=== PATIENT | male | born 1970 | race Caucasian/White ===

== ENCOUNTER 2018-12-16 22:02 | Emergency (ER) | payer MEDICAID ==
[~2018-12-16] VITALS: Ht 175.3 cm; Wt 102.7 kg
[2018-12-16 22:05] VITALS: BP 172/120
--- NOTE | 2018-12-16 22:16 | NUR ---
PT BP REPORTED TO DR. MCDERMOTT. DR. MCDERMOTT STILL OKAY WITH SEEING PT IN [facility].
--- NOTE | 2018-12-16 22:46 | NUR ---
PRECEPTOR NOTE: PER OZZY STOKES, NO BP RECHECK NEEDED. PT DENIES CP/SOB/HEADACHE/VISION CHANGES. PT A&O, RESPS EVEN AND UNLABORED, NADN. PT TO BE DC'D SHORTLY.
--- NOTE | 2018-12-16 23:00 | NUR ---
PT GIVEN DC INSTRUCTIONS AND SCRIPT. PT EDUCATED REGARDING DC MEDICATION WHICH IS AMOXICILLIN. PT AMB TO DC WITH STEADY GAIT. NO ACUTE DISTRESS AT DC.
== END 2018-12-16 23:01 | disposition home or self-care (01) ==
LOC: ED 22:45
DX: H66.003 Acute suppurative otitis media without spontaneous rupture of ear drum, bilateral (principal); I10 Essential (primary) hypertension; Z87.891 Personal history of nicotine dependence
CPT/HCPCS: 99283

== ENCOUNTER 2019-10-06 21:45 | Inpatient (IN) | payer SELFPAY ==
[~2019-10-06] VITALS: Ht 180.3 cm; Wt 103.4 kg
[2019-10-06] MEDS ORDERED: methylPREDNISolone SOD SUCC 125 MG/2 ML IVPush ONE (22:05)
[2019-10-06] MEDS ORDERED: ONDANSETRON 2MG/ML, 2ML ONE (22:09)
[2019-10-06] MEDS ORDERED: methylPREDNISolone SOD SUCC 125 MG/2 ML ONE (22:09)
[2019-10-06] MEDS ORDERED: ASPIRIN 81 MG TABLET CHEW ONE (22:09)
--- NOTE | 2019-10-06 22:15 | NUR ---
FIRST CONTACT WITH PT. PT SITTING UP IN [facility]. FREQUENT DRY COUGH NOTED. PT SPEAKING IN FULL SENTENCES. NO ACCESSORY MUSCLE USE NOTED. PT MEDICATED PER EMAR W CHEWABLE ASA. PT TAKEN TO XRAY. DELAY IN PIV PLACEMENT/LABS/FURTHER RX.
[2019-10-06] MEDS ORDERED: ALBUTEROL/IPRATROPIUM 2.5MG/0.5MG, 3 ML ONE (22:24)
[2019-10-06] MEDS ORDERED: ASPIRIN 81 MG TABLET CHEW PO ONE (22:30)
[2019-10-06] MEDS ORDERED: ONDANSETRON 2MG/ML, 2ML IVPush ONE (22:30)
[2019-10-06] MEDS ORDERED: SODIUM CHLORIDE FLUSH 10ML SYR IVF ONE (22:30)
[2019-10-06] MEDS ORDERED: PLEASE ENTER ALLERGIES MC SCH (22:30)
[2019-10-06] MEDS ORDERED: ALBUTEROL/IPRATROPIUM 2.5MG/0.5MG, 3 ML NPPB ONE ×2 (22:30→23:30)
[2019-10-06 22:40] LABS: RAPID INFLUENZA A Negative (Negative); RAPID INFLUENZA B Negative (Negative)
--- NOTE | 2019-10-06 22:40 | NUR ---
PIV ESTABLISHED. LABS DRAWN. BC X1 DRAWN WITH PIV START. PT MEDICATED PER EMAR. RT IN FOR BREATHING TX. POST TX SPO2 TO 86% WHILE RESTING. RR 25. PT PLACED ON OXY MASK, 4L WITH IMPROVED SPO2, 94%.
[2019-10-06 22:45] LABS: BASOPHILS # (AUTO) 0.02 x10^3/uL (0-0.1); BASOPHILS % (AUTO) 1 % (0-1); EOSINOPHILS # (AUTO) 0.01 x10^3/uL (0-0.4); EOSINOPHILS % (AUTO) 0 % (1-7); LYMPHOCYTES # (AUTO) 0.69 x10^3/uL (1-3.4); LYMPHOCYTES % (AUTO) 14 % (22-44); MD NO; MEAN CORPUSCULAR HEMOGLOBIN 29.5 pg (27.5-34.5); MEAN CORPUSCULAR HGB CONC 32.4 g/dL (33.2-36.2); MEAN PLATELET VOLUME 10.5 fL (7.4-10.4); MONOCYTES # (AUTO) 0.46 x10^3/uL (0.2-0.8); MONOCYTES % (AUTO) 10 % (2-9); NEUTROPHILS # (AUTO) 3.63 x10^3/uL (1.8-6.8); NEUTROPHILS % (AUTO) 75 % (42-75); PLATELET COUNT 154 x10^3/uL (130-400); RED BLOOD COUNT 5.93 x10^6/uL (4.38-5.82); RED CELL DISTRIBUTION WIDTH 13.5 % (9.4-14.8)
[2019-10-06] MEDS ORDERED: CARV3.122 PO (22:48)
[2019-10-06] MEDS ORDERED: LOSA1TAB25 PO (22:48)
[2019-10-06 22:52] LABS: ALANINE AMINOTRANSFERASE 45 U/L (12-78); ALBUMIN 3.8 g/dL (3.4-5.0); ANION GAP 8 mmol/L (5-15); CALCIUM 8.4 mg/dL (8.5-10.1); CHLORIDE 107 mmol/L (98-107)
[2019-10-06 22:56] LABS: ALKALINE PHOSPHATASE 107 U/L (45-117); BILIRUBIN,TOTAL 0.6 mg/dL (0.2-1.0); TOTAL PROTEIN 7.5 g/dL (6.4-8.2)
--- NOTE | 2019-10-06 23:49 | NUR ---
PT REPORTS SIGNIFICANT IMPROVEMENT IN WOB WITH MEDICATIONS/BREATHING TX. PT AWAKE/ALERT. SPO2 >90% ON 4L BY OXYMASK. FAMILY PRESENT
--- NOTE | 2019-10-07 00:11 | NUR ---
REPORT TO JUDD QUEZADA
[2019-10-07 00:27] VITALS: BP 111/80
[2019-10-07] MEDS ORDERED: LISI-170 PO (00:28)
[2019-10-07] MEDS ORDERED: LISI1TAB20 PO (00:32)
[2019-10-07] MEDS ORDERED: morphine SULFATE 10 MG/ML, 1ML IVPush PRN (02:30)
[2019-10-07] MEDS ORDERED: LABETALOL 5 MG/ML SYR. (IV ONLY) IVPush PRN (02:30)
[2019-10-07] MEDS ORDERED: ACETAMINOPHEN 325 MG TABLET PO PRN (02:30)
[2019-10-07] MEDS ORDERED: FUROSEMIDE 20 MG/2 ML IV SCH (02:30)
[2019-10-07] MEDS ORDERED: ONDANSETRON 2MG/ML, 2ML IVPush PRN (02:30)
[2019-10-07] MEDS ORDERED: TRAZODONE 50MG TABLET PO PRN (02:30)
[2019-10-07] MEDS ORDERED: ALBUTEROL SULFATE 2.5 MG/3 ML NPPB PRN (05:00)
[2019-10-07 05:14] LABS: ANION GAP 9 mmol/L (5-15); CALCIUM 8.6 mg/dL (8.5-10.1); CHLORIDE 107 mmol/L (98-107)
[2019-10-07 05:19] LABS: CHOLESTEROL, TOTAL 147 mg/dL (140-239); CREATININE 1.34 mg/dL (0.7-1.3); HDL CHOL % 25 % (26-37); HDL CHOLESTEROL (DIRECT) 37 mg/dL (40-60); LDL CHOLESTEROL,CALCULATED 96 mg/dL (54-169); LDL/HDL RATIO 2.6 (0.5-3.0); TRIGLYCERIDES 69 mg/dL (50-200); TROPONIN I < 0.015 ng/mL (0.000-0.045); VLDL CHOLESTEROL 14 mg/dL (0-25)
[2019-10-07] MEDS: HEPARIN 5,000 UNITS/ML, 1ML SQ SCH ×3 (05:44→21:50)
[2019-10-07] MEDS: ASPIRIN 325 MG TABLET EC PO SCH (05:47)
[2019-10-07 06:34] LABS: AMPHETAMINE SCREEN, URINE Positive (Negative); BARBITURATE SCREEN, URINE Negative (Negative); BENZODIAZEPINE SCREEN, URINE Negative (Negative); CANNABINOID SCREEN, URINE Positive (Negative); COCAINE SCREEN, URINE Negative (Negative); METHADONE SCREEN, URINE Negative (Negative); OPIATE SCREEN, URINE Negative (Negative)
[2019-10-07 08:00] VITALS: BP 127/89
[2019-10-07] MEDS: CARVEDILOL 3.125 MG TABLET PO SCH (08:08)
[2019-10-07 10:00] VITALS: BP 121/84
[2019-10-07 11:20] LABS: TROPONIN I < 0.015 ng/mL (0.000-0.045)
[2019-10-07] MEDS ORDERED: AZITHROMYCIN 500 MG TABLET PO ONE (13:30)
[2019-10-07 14:20] VITALS: BP 103/69
[2019-10-07 20:26] VITALS: BP 118/83
[2019-10-08 01:35] VITALS: BP 121/87
[2019-10-08 05:38] LABS: BASOPHILS # (AUTO) 0.02 x10^3/uL (0-0.1); BASOPHILS % (AUTO) 0 % (0-1); EOSINOPHILS # (AUTO) 0.04 x10^3/uL (0-0.4); EOSINOPHILS % (AUTO) 1 % (1-7); LYMPHOCYTES # (AUTO) 1.48 x10^3/uL (1-3.4); LYMPHOCYTES % (AUTO) 17 % (22-44); MD NO; MEAN CORPUSCULAR HGB CONC 32.6 g/dL (33.2-36.2); MEAN CORPUSCULAR VOLUME 92.1 fL (81-97); MEAN PLATELET VOLUME 10.9 fL (7.4-10.4); MONOCYTES # (AUTO) 0.81 x10^3/uL (0.2-0.8); MONOCYTES % (AUTO) 9 % (2-9); NEUTROPHILS # (AUTO) 6.65 x10^3/uL (1.8-6.8); NEUTROPHILS % (AUTO) 74 % (42-75); PLATELET COUNT 134 x10^3/uL (130-400); RED BLOOD COUNT 5.55 x10^6/uL (4.38-5.82); RED CELL DISTRIBUTION WIDTH 14.1 % (9.4-14.8)
[2019-10-08 05:39] LABS: ANION GAP 8 mmol/L (5-15); CALCIUM 8.4 mg/dL (8.5-10.1); CHLORIDE 107 mmol/L (98-107)
[2019-10-08 05:40] LABS: CREATININE 1.36 mg/dL (0.7-1.3)
[2019-10-08] MEDS: HEPARIN 5,000 UNITS/ML, 1ML SQ SCH (05:43)
[2019-10-08] MEDS: ASPIRIN 325 MG TABLET EC PO SCH (05:43)
[2019-10-08] MEDS: CARVEDILOL 3.125 MG TABLET PO SCH (07:47)
[2019-10-08 08:18] VITALS: BP 124/89
[2019-10-08] MEDS ORDERED: AZITHROMYCIN 250 MG TABLET PO SCH (09:00)
[2019-10-08] MEDS ORDERED: FUROSEMIDE 20 MG TABLET PO SCH (09:00)
[2019-10-08] MEDS ORDERED: FURO20TA3 PO (11:03)
[2019-10-08] MEDS ORDERED: PRED20TA PO (11:03)
[2019-10-08] MEDS ORDERED: AZIT250T89 PO (11:03)
[2019-10-08] MEDS ORDERED: ALBU90AE INH (11:03)
[2019-10-08] MEDS ORDERED: ASPI81TA45 PO (11:03)
[2019-10-08] MEDS ORDERED: CARV3.122 PO (11:03)
[2019-10-08] MEDS ORDERED: LISI1TAB20 PO (11:03)
== END 2019-10-08 13:48 | disposition home or self-care (01) | DRG 682 ==
LOC: ED 23:01 → EDIP 23:22 → 5SO 10-07 00:20
PROVIDERS: ADMIT Family Medicine; ATTEND Family Medicine
DX: N17.9 Acute kidney failure, unspecified (principal); J96.01 Acute respiratory failure with hypoxia; I50.43 Acute on chronic combined systolic (congestive) and diastolic (congestive) heart failure; J44.1 Chronic obstructive pulmonary disease with (acute) exacerbation; F15.129 Other stimulant abuse with intoxication, unspecified; I11.0 Hypertensive heart disease with heart failure; F17.210 Nicotine dependence, cigarettes, uncomplicated; E66.9 Obesity, unspecified; I27.20 Pulmonary hypertension, unspecified; Z83.3 Family history of diabetes mellitus; Z91.19 Patient's noncompliance with other medical treatment and regimen; Z71.6 Tobacco abuse counseling; Z68.31 Body mass index [BMI] 31.0-31.9, adult; Z79.899 Other long term (current) drug therapy
CPT/HCPCS: 36415; 87400; J7620; 71046; 80048; 80053; 80061; 80307; 83735; 83880; 84100; 84439; 84443; 84481; 84484; 85025; 93005; 93306; 94640; 96374; G0378; J1644; J2405; J1940; J2930; J7512

== ENCOUNTER 2020-09-28 16:57 | Inpatient (IN) | payer OTHER ==
[~2020-09-28] VITALS: Ht 177.8 cm; Wt 120.4 kg
[~2020-09-28 16:57] MED LIST: ALBU90AE INH; ASPI81TA45 PO; AZIT250T89 PO; CARV3.122 PO; FURO20TA3 PO; LISI-170 PO; LISI1TAB20 PO; LOSA1TAB25 PO; PRED20TA PO
--- NOTE | 2020-09-28 17:26 | NUR ---
PATIENT WALKED BACK FROM TRIAGE WITH CHIEF C/O COUGH AND SOB SINCE THE BEGINNING OF THE YEAR. PATIENT STATES IT HAS GOTTEN WORSE THE LAST 4 DAYS, HE WAS TESTED FOR COVID LAST WEEK AT [facility] AND IT WAS NEGATIVE. PATIENT STATES "THE PROBLEM IS WALKING FROM THE STORE TO MY CAR, I GET SOB." PATIENT DENIES FEVER, DENIES N/V/D, DENIES LOSS OF TASTE OR SMELL. DENIES CHOI. NO SIGNS OF ACUTE DISTRESS, CONNECTED TO VITALS MACHINE, SIDE RAILS UP X2, CALL LIGHT WITHIN REACH.
--- NOTE | 2020-09-28 17:31 | NUR ---
PATIENT ENDORSES SMOKING "METH ABOUT NOON TODAY."
[2020-09-28] MEDS ORDERED: SODIUM CHLORIDE FLUSH 10ML SYR IVF ONE (18:00)
[2020-09-28] MEDS ORDERED: ASPIRIN 81 MG TABLET CHEW PO ONE (18:00)
[2020-09-28] MEDS ORDERED: ASPIRIN 81 MG TABLET CHEW ONE (18:05)
[2020-09-28 18:08] LABS: BASOPHILS % (AUTO) 1 % (0-1); EOSINOPHILS % (AUTO) 1 % (1-7); LYMPHOCYTES % (AUTO) 33 % (22-44); MEAN CORPUSCULAR HEMOGLOBIN 30.8 pg (27.5-34.5); MEAN CORPUSCULAR HGB CONC 33.3 g/dL (33.2-36.2); MEAN PLATELET VOLUME 9.9 fL (7.4-10.4); MONOCYTES % (AUTO) 8 % (2-9); NEUTROPHILS % (AUTO) 56 % (42-75); PLATELET COUNT 202 x10^3/uL (130-400); RED BLOOD COUNT 5.68 x10^6/uL (4.38-5.82); RED CELL DISTRIBUTION WIDTH 14.8 % (9.4-14.8)
[2020-09-28 18:10] LABS: MD NO
[2020-09-28] MEDS ORDERED: DILTIAZEM 5 MG/ML, 5ML ONE (18:12)
--- NOTE | 2020-09-28 18:18 | NUR ---
BREAK RN: JULIO PER JAN, GTT REQ FROM PHARM. DENIES CP. CALL JUAN.
[2020-09-28 18:19] LABS: ALANINE AMINOTRANSFERASE 70 U/L (12-78); ALBUMIN 3.6 g/dL (3.4-5.0); ANION GAP 5 mmol/L (5-15); CALCIUM 8.8 mg/dL (8.5-10.1); CHLORIDE 110 mmol/L (98-107); CREATININE 1.62 mg/dL (0.7-1.3)
[2020-09-28 18:23] LABS: ALKALINE PHOSPHATASE 199 U/L (45-117); BILIRUBIN,TOTAL 2.3 mg/dL (0.2-1.0); TOTAL PROTEIN 7.1 g/dL (6.4-8.2); TROPONIN I 0.017 ng/mL (0.000-0.045)
[2020-09-28] MEDS ORDERED: DILTIAZEM 125 MG in SODIUM CHLORIDE 0.9% 100 ML IV SCH (18:30)
[2020-09-28] MEDS ORDERED: DILTIAZEM 5 MG/ML, 5ML IV ONE (18:30)
--- NOTE | 2020-09-28 19:26 | NUR ---
TP RN: PT WITH NON-CONTRACTED INSURANCE. NO ANSWER. UNABLE TO REQUEST APPROVAL/DENIAL FROM INSURED FACILITY.
[2020-09-28] MEDS ORDERED: SODIUM CHLORIDE FLUSH 10ML SYR IVF PRN (19:30)
--- NOTE | 2020-09-28 19:39 | NUR ---
Ken and Rhea Randle (parents) [phone] Would like an update.
--- NOTE | 2020-09-28 19:58 | NUR ---
REPORT CALLED TO JUDD QUEZADA ON CARDIAC TELEMETRY FOR TRANSFER OF PATIENT CARE.
--- NOTE | 2020-09-28 20:04 | NUR ---
PATIENT TRANSFERRED IN STABLE CONDITION VIA GURNEY WITH SPRAY GUN SIZER TO CARDIAC TELEMETRY. DILTIAZEM DRIP RUNNING AT 10mLs/hr AT TIME OF TRANSFER. ALL PATIENT BELONGINGS GATHERED AND TAKEN TO FLOOR WITH PATIENT.
[2020-09-28 20:49] VITALS: BP 128/99
[2020-09-28] MEDS ORDERED: ZOLPIDEM 5MG TABLET PO PRN (21:00)
[2020-09-28] MEDS ORDERED: METHOCARBAMOL 500 MG TABLET PO PRN (21:00)
[2020-09-28] MEDS ORDERED: DOCUSATE 100 MG CAPSULE PO PRN (21:00)
[2020-09-28] MEDS: INSULIN REGULAR 100 UNITS/ML, 3ML VIAL SQ-INSULIN SCH (21:00)
[2020-09-28] MEDS ORDERED: ACETAMINOPHEN 325 MG TABLET PO PRN (21:00)
[2020-09-28] MEDS: DILTIAZEM 125 MG in SODIUM CHLORIDE 0.9% 100 ML IV SCH (21:00)
[2020-09-28] MEDS ORDERED: ONDANSETRON 2MG/ML, 2ML IVPush PRN (21:00)
[2020-09-28] MEDS ORDERED: HYDROcodone/APAP 5/325 TABLET PO PRN (21:00)
[2020-09-28] MEDS ORDERED: GUAIFENESIN/DM 200-20MG, 10ML UDC PO PRN (21:00)
[2020-09-28] MEDS: HEPARIN 5,000 UNITS/ML, 1ML SQ SCH (21:57)
[2020-09-28] MEDS: FUROSEMIDE 40 MG/4 ML IV SCH (21:57)
[2020-09-29] LABS: TROPONIN I 0.023 ng/mL (0.000-0.045)
[2020-09-29 00:32] VITALS: BP 123/91
[2020-09-29] MEDS ORDERED: LORazepam 0.5MG TABLET ONE (04:07)
[2020-09-29] MEDS: LORazepam 0.5MG TABLET PO PRN ×2 (04:09→16:26)
[2020-09-29 05:12] LABS: BASOPHILS % (AUTO) 1 % (0-1); EOSINOPHILS % (AUTO) 1 % (1-7); LYMPHOCYTES % (AUTO) 38 % (22-44); MEAN CORPUSCULAR HEMOGLOBIN 30.8 pg (27.5-34.5); MEAN PLATELET VOLUME 9.6 fL (7.4-10.4); MONOCYTES % (AUTO) 9 % (2-9); NEUTROPHILS % (AUTO) 51 % (42-75); PLATELET COUNT 209 x10^3/uL (130-400); RED BLOOD COUNT 5.64 x10^6/uL (4.38-5.82); RED CELL DISTRIBUTION WIDTH 14.7 % (9.4-14.8)
[2020-09-29 05:20] LABS: ANION GAP 5 mmol/L (5-15); CALCIUM 8.9 mg/dL (8.5-10.1); CHLORIDE 109 mmol/L (98-107)
[2020-09-29 05:21] LABS: MD NO
[2020-09-29 05:26] LABS: CREATININE 1.78 mg/dL (0.7-1.3)
[2020-09-29] MEDS: HEPARIN 5,000 UNITS/ML, 1ML SQ SCH ×3 (05:41→22:07)
[2020-09-29 06:34] VITALS: BP 141/86
[2020-09-29] MEDS: DILTIAZEM 125 MG in SODIUM CHLORIDE 0.9% 100 ML IV SCH ×2 (06:48→16:14)
[2020-09-29] MEDS: INSULIN REGULAR 100 UNITS/ML, 3ML VIAL SQ-INSULIN SCH ×4 (08:18→21:00)
[2020-09-29] MEDS: FUROSEMIDE 40 MG/4 ML IV SCH ×2 (08:46→16:06)
[2020-09-29] MEDS: CARVEDILOL 3.125 MG TABLET PO SCH (08:47)
[2020-09-29] MEDS ORDERED: LISINOPRIL 20 MG TABLET PO SCH (09:00)
[2020-09-29] MEDS ORDERED: TEMPLATE NON-FORMULARY MED. (Lisinopril/Hydrochlorothiazide** (Lisinopril-Hctz 20-25 Mg Ta PO SCH (09:00)
[2020-09-29] MEDS ORDERED: HYDROCHLOROTHIAZIDE 25 MG TABLET PO SCH (09:00)
[2020-09-29 13:24] VITALS: BP 114/82
[2020-09-29 15:40] LABS: AMPHETAMINE SCREEN, URINE Positive (Negative); BARBITURATE SCREEN, URINE Negative (Negative); BENZODIAZEPINE SCREEN, URINE Negative (Negative); CANNABINOID SCREEN, URINE Negative (Negative); COCAINE SCREEN, URINE Negative (Negative); METHADONE SCREEN, URINE Negative (Negative); OPIATE SCREEN, URINE Negative (Negative)
[2020-09-29 20:54] VITALS: BP 107/78
[2020-09-30 00:55] VITALS: BP 126/89
[2020-09-30] MEDS: DILTIAZEM 125 MG in SODIUM CHLORIDE 0.9% 100 ML IV SCH (02:31)
[2020-09-30 05:53] LABS: BASOPHILS % (AUTO) 1 % (0-1); EOSINOPHILS % (AUTO) 0 % (1-7); LYMPHOCYTES % (AUTO) 26 % (22-44); MEAN CORPUSCULAR HEMOGLOBIN 31.2 pg (27.5-34.5); MEAN CORPUSCULAR HGB CONC 33.6 g/dL (33.2-36.2); MEAN PLATELET VOLUME 9.9 fL (7.4-10.4); MONOCYTES % (AUTO) 10 % (2-9); NEUTROPHILS % (AUTO) 63 % (42-75); PLATELET COUNT 208 x10^3/uL (130-400); RED CELL DISTRIBUTION WIDTH 15.1 % (9.4-14.8)
[2020-09-30 06:04] LABS: CHLORIDE 104 mmol/L (98-107)
[2020-09-30] MEDS: HEPARIN 5,000 UNITS/ML, 1ML SQ SCH (06:07)
[2020-09-30 06:13] LABS: ANION GAP 14 mmol/L (5-15); CALCIUM 8.7 mg/dL (8.5-10.1); CREATININE 2.18 mg/dL (0.7-1.3)
[2020-09-30 06:45] LABS: MD SCAN
[2020-09-30] MEDS: INSULIN REGULAR 100 UNITS/ML, 3ML VIAL SQ-INSULIN SCH (07:00)
[2020-09-30 07:12] VITALS: BP 139/83
[2020-09-30] MEDS ORDERED: DILTIAZEM 240 MG CAP.ER.24H PO SCH (09:00)
[2020-09-30] MEDS: CARVEDILOL 3.125 MG TABLET PO SCH (09:45)
== END 2020-09-30 10:23 | disposition left against medical advice (07) | DRG 291 ==
LOC: ED 18:30 → EDIP 19:10 → 5SO 20:08
PROVIDERS: ADMIT Internal Medicine; ATTEND Internal Medicine Infectious Disease
DX: I13.0 Hypertensive heart and chronic kidney disease with heart failure and stage 1 through stage 4 chronic kidney disease, or unspecified chronic kidney disease (principal); I50.43 Acute on chronic combined systolic (congestive) and diastolic (congestive) heart failure; I48.92 Unspecified atrial flutter; N17.9 Acute kidney failure, unspecified; D72.829 Elevated white blood cell count, unspecified; E11.22 Type 2 diabetes mellitus with diabetic chronic kidney disease; E87.8 Other disorders of electrolyte and fluid balance, not elsewhere classified; F12.19 Cannabis abuse with unspecified cannabis-induced disorder; F15.10 Other stimulant abuse, uncomplicated; F17.200 Nicotine dependence, unspecified, uncomplicated; I48.91 Unspecified atrial fibrillation; J44.9 Chronic obstructive pulmonary disease, unspecified; N18.30 Chronic kidney disease, stage 3 unspecified; G47.33 Obstructive sleep apnea (adult) (pediatric)
CPT/HCPCS: 36415; 36600; 71045; 80048; 80053; 80307; 82803; 82962; 83735; 83880; 84100; 84484; 85025; 93005; 93306; G0378; J1644; J1815; J1940; J2405